=== PATIENT | female | born 1955 | race American Indian/Alaskan Native ===

== ENCOUNTER 2017-01-11 15:10 | Outpatient (CLI) | payer MEDICARE ==
--- NOTE | 2017-01-11 16:06 | Mammography Report ---
BILATERAL DIGITAL SCREENING MAMMOGRAM with CAD : 01/11/17 15:10:00 CLINICAL: Routine screening. COMPARISON:01/09/16 FINDINGS: The breasts are heterogeneously dense, which may obscure small masses.Left central biopsy clip. No mass, architectural distortion or suspicious calcifications. IMPRESSION: No mammographic evidence of malignancy. BI-RADS CATEGORY: 2 -- Benign RECOMMENDATION: Routine mammographic screening in one year. COMMENT: Patient follow-up letters are generated by our [employer] application.
== END 2017-01-11 15:11 | disposition home or self-care (01) ==
LOC: MAMMO 15:10
PROVIDERS: ATTEND Internal Medicine
DX: Z12.31 Encounter for screening mammogram for malignant neoplasm of breast (principal); E11.9 Type 2 diabetes mellitus without complications; E78.00 Pure hypercholesterolemia, unspecified; D64.9 Anemia, unspecified; Z87.891 Personal history of nicotine dependence
CPT/HCPCS: 77067; G0202

== ENCOUNTER 2018-01-22 15:15 | Emergency (ER) | payer MEDICARE ==
[2018-01-22] MEDS ORDERED: ZOFRAN ODT PO ONE (17:29)
[2018-01-22] MEDS ORDERED: NORCO 5/325 PO ONE (17:29)
--- NOTE | 2018-01-22 17:33 | Emergency Department Report ---
ED Abdominal Pain HPI - General Chief Complaint: Abdominal Pain Stated Complaint: LOWER STOMACH PAIN Time Seen by Provider: 01/22/18 17:21 Source: patient Mode of arrival: Ambulatory Limitations: No Limitations - History of Present Illness Initial Comments: Patient is 63 years old female with history of diabetes. Patient presented to the ER complaining of lower abdominal pain for one week. Patient stated that she was constipated for 3 days she called her primary care physician prescribed her Amitza, she stated that she started having diarrhea after that and the pain went away for a while and he came back again. Patient denied any nausea or vomiting patient is eating and drinking in the ER with was no evidence of loss of appetite or vomiting. Patient also denied fever. MD Complaint: abdominal pain -: week(s) Location: suprapubic Radiation: none Migration to: no migration Severity: moderate Severity scale (0 -10): 5 Quality: cramping Associated Symptoms: denies other symptoms - Related Data Home Medications Medication Instructions Recorded Confirmed Last Taken AtorvaSTATin [Lipitor] 10 mg PO QHS 03/09/16 03/09/16 Unknown Fenofibric Acid (Choline) 135 mg PO DAILY 03/09/16 03/09/16 Unknown [Fenofibric Acid] Insulin Glargine [Lantus VIAL] 10 unit SUB-Q QHS 03/09/16 03/09/16 Unknown Losartan [Cozaar] 25 mg PO QDAY 03/09/16 03/09/16 Unknown Quetiapine Fumarate [QUEtiapine 300 mg PO QDAY 03/09/16 03/09/16 Unknown Fumarate] Quetiapine Fumarate [SEROquel XR] 200 mg PO DAILY 03/09/16 03/09/16 Unknown Valacyclovir HCl [Valtrex] 1 tab PO DAILY 03/09/16 03/09/16 Unknown Zolpidem [Ambien] 10 mg PO QHS 03/09/16 03/09/16 Unknown Previous Rx's Medication Instructions Recorded Last Taken Type Docusate Sodium [Colace] 100 mg PO BID PRN #14 capsule 05/27/16 Unknown Rx Magnesium Citrate [Citrate of 296 ml PO ONCE #1 bottle 05/27/16 Unknown Rx Magnesia] Tramadol HCl [traMADol ER 100 MG] 100 mg PO QDAY PRN #10 tab 05/27/16 Unknown Rx Allergies Allergy/AdvReac Type Severity Reaction Status Date / Time No Known Allergies Allergy Verified 01/22/18 15:19 ED Review of Systems ROS: Stated complaint: LOWER STOMACH PAIN Other details as noted in HPI Comment: All other systems reviewed and negative Constitutional: denies: chills, fever Respiratory: denies: cough, orthopnea, shortness of breath, SOB with exertion Cardiovascular: denies: chest pain, palpitations Gastrointestinal: abdominal pain, diarrhea, constipation. denies: nausea, vomiting, hematemesis, melena, hematochezia Genitourinary: denies: urgency, dysuria, frequency, hematuria Neurological: denies: headache, weakness, numbness, paresthesias, confusion ED Past Medical Hx - Past Medical History Hx Congestive Heart Failure: No Hx Diabetes: Yes Hx Deep Vein Thrombosis: Yes (LEFT THIGH) Hx Liver Disease: Yes (Hep C) Hx Arthritis: Yes (BILAT KNEES) Hx Headaches / Migraines: Yes Hx Asthma: No Hx COPD: No Hx HIV: No Additional medical history: Lower extremity DVT, vena cava filter, left subdural hematoma, genital herpes - Surgical History Hx Pacemaker: No Hx Internal Defibrillator: No Additional Surgical History: IVC filter. brain surgery (brain bleed) - March - Social History Smoking Status: Never Smoker Substance Use Type: None - Medications Home Medications: Home Medications Medication Instructions Recorded Confirmed Last Taken Type AtorvaSTATin [Lipitor] 10 mg PO QHS 03/09/16 03/09/16 Unknown History Fenofibric Acid (Choline) 135 mg PO DAILY 03/09/16 03/09/16 Unknown History [Fenofibric Acid] Insulin Glargine [Lantus VIAL] 10 unit SUB-Q QHS 03/09/16 03/09/16 Unknown History Losartan [Cozaar] 25 mg PO QDAY 03/09/16 03/09/16 Unknown History Quetiapine Fumarate [QUEtiapine 300 mg PO QDAY 03/09/16 03/09/16 Unknown History Fumarate] Quetiapine Fumarate [SEROquel XR] 200 mg PO DAILY 03/09/16 03/09/16 Unknown History Valacyclovir HCl [Valtrex] 1 tab PO DAILY 03/09/16 03/09/16 Unknown History Zolpidem [Ambien] 10 mg PO QHS 03/09/16 03/09/16 Unknown History Docusate Sodium [Colace] 100 mg PO BID PRN #14 capsule 05/27/16 Unknown Rx Magnesium Citrate [Citrate of 296 ml PO ONCE #1 bottle 05/27/16 Unknown Rx Magnesia] Tramadol HCl [traMADol ER 100 MG] 100 mg PO QDAY PRN #10 tab 05/27/16 Unknown Rx ED Physical Exam - General Limitations: No Limitations General appearance: alert, in no apparent distress - Head Head exam: Present: atraumatic, normocephalic, normal inspection - Eye Eye exam: Present: normal appearance - ENT ENT exam: Present: normal exam, normal orophraynx, mucous membranes moist - Neck Neck exam: Present: normal inspection, full ROM. Absent: tenderness, meningismus, lymphadenopathy, thyromegaly - Respiratory Respiratory exam: Present: normal lung sounds bilaterally. Absent: respiratory distress, wheezes, rales, rhonchi, stridor, chest wall tenderness, accessory muscle use, decreased breath sounds, prolonged expiratory - Cardiovascular Cardiovascular Exam: Present: regular rate, normal rhythm, normal heart sounds - GI/Abdominal GI/Abdominal exam: Present: soft, normal bowel sounds. Absent: distended, tenderness, guarding, rebound, rigid, organomegaly, mass, bruit, pulsatile mass , hernia - Extremities Exam Extremities exam: Present: normal inspection, full ROM, normal capillary refill - Back Exam Back exam: Present: normal inspection, full ROM. Absent: tenderness, CVA tenderness (R), CVA tenderness (L), muscle spasm, paraspinal tenderness, vertebral tenderness, rash noted - Neurological Exam Neurological exam: Present: alert, oriented X3, CN II-XII intact, normal gait, reflexes normal - Skin Skin exam: Present: warm, intact, normal color ED Course Vital Signs 01/22/18 01/22/18 15:19 18:04 Temperature 98.3 F Pulse Rate 107 H Respiratory 18 20 Rate Blood Pressure 147/73 O2 Sat by Pulse 97 Oximetry ED Medical Decision Making - Lab Data Result diagrams: 01/22/18 18:23 01/22/18 18:23 - Radiology Data Radiology results: report reviewed Abdominal x-ray series, nonobstructive gas pattern. Critical care attestation.: If time is entered above; I have spent that time in minutes in the direct care of this critically ill patient, excluding procedure time. ED Disposition Clinical Impression: Abdominal pain, Constipation Disposition: DC-01 TO HOME OR SELFCARE Is pt being admited?: No Condition: Stable Instructions: Abdominal Pain (ED), High Fiber Diet (ED), Constipation (ED) Referrals: PRIMARY CARE,MD [Primary Care Provider] - 3-5 Days
--- NOTE | 2018-01-22 18:40 | XRay Report ---
FINAL REPORT EXAM: XR ABD SERIES W CXR 1V HISTORY: abdominal pain TECHNIQUE: Single supine view of the abdomen PRIORS: None. FINDINGS: The bowel gas pattern is nonspecific. No free air is identified. Soft tissues have no evidence for mass shadows or calcifications. Inferior vena cava filter is present to the right of the L2-L3. The bony structures are intact. IMPRESSION: Nonspecific, nonobstructive bowel gas pattern with no acute process noted.
[2018-01-22 19:00] LABS: BUN/Creatinine Ratio 17; Blood Urea Nitrogen 15 mg/dL (7-17); Calcium 9.9 mg/dL (8.4-10.2); Hemolysis Index 80
[2018-01-22 19:05] LABS: Hemoglobin 14.9 gm/dl (10.1-14.3); Mean Corpuscular HGB Conc 33 % (30-34); Mean Corpuscular Hemoglobin 33 pg (28-32); Mean Corpuscular Volume 99 fl (79-97); Red Blood Count 4.56 M/mm3 (3.65-5.03); Red Cell Distribution Width 14.9 % (13.2-15.2)
[2018-01-22 19:06] LABS: Platelet Count 228 K/mm3 (140-440)
[2018-01-22 19:23] VITALS: BP 126/86
== END 2018-01-22 19:49 | disposition home or self-care (01) ==
LOC: ED 15:15
DX: K59.00 Constipation, unspecified (principal); E11.9 Type 2 diabetes mellitus without complications; Z86.718 Personal history of other venous thrombosis and embolism; M17.0 Bilateral primary osteoarthritis of knee; G43.909 Migraine, unspecified, not intractable, without status migrainosus
CPT/HCPCS: 36415; 74022; 80048; 85025; Q0162

== ENCOUNTER → 2018-02-15 | Outpatient (CLI) | payer MEDICARE ==
--- NOTE | 2018-02-16 11:47 | Mammography Report ---
BILATERAL DIGITAL SCREENING MAMMOGRAM with CAD: 02/15/18 13:23:00 CLINICAL: Routine screening.Previous left benign biopsy. COMPARISON:01/11/17 FINDINGS: The breasts are heterogeneously dense, which may obscure small masses. A left central biopsy clip and stable calcifications near the clips. No mass, architectural distortion or suspicious calcifications. IMPRESSION: No mammographic evidence of malignancy. BI-RADS CATEGORY: 2 -- Benign RECOMMENDATION: Routine mammographic screening in one year. COMMENT: Patient follow-up letters are generated by our [employer] application.
== END | disposition home or self-care (01) ==
LOC: MAMMO 13:23
PROVIDERS: ATTEND Internal Medicine
DX: Z12.31 Encounter for screening mammogram for malignant neoplasm of breast (principal); E78.5 Hyperlipidemia, unspecified; E11.65 Type 2 diabetes mellitus with hyperglycemia; I82.409 Acute embolism and thrombosis of unspecified deep veins of unspecified lower extremity; M19.90 Unspecified osteoarthritis, unspecified site
CPT/HCPCS: 77067

== ENCOUNTER 2019-02-17 10:36 | Outpatient (CLI) | payer MEDICARE ==
--- NOTE | 2019-02-20 11:28 | Mammography Report ---
BILATERAL DIGITAL SCREENING MAMMOGRAM WITH CAD INDICATION: Routine screening mammography. TECHNIQUE: Digital bilateral 2D mammography was obtained in the craniocaudal and mediolateral obliq ue projections. This examination was interpreted with the benefit of Computer-Aided Detection analysi s. COMPARISON: 02/15/2018 FINDINGS: Breast Density: There are scattered areas of fibroglandular density. No mass, architectural distortion or suspicious calcifications. A left central biopsy clip and stable calcifications near the clip. IMPRESSION:No mammographic evidence of malignancy. BI-RADS Category 2: Benign. No mammographic evidence of malignancy. Recommend routine screening ma mmography in one year. A "normal" or negative report should not discourage follow up or biopsy of a clinically significant f inding. A written summary of these findings will be mailed to the patient. The patient will be entered into a mammography reporting system which will generate a reminder letter for the patient's next appointmen t at the appropriate interval. The [employer] recommends yearly mammograms starting at age 40 and continuing as l pierre as a woman is in good health. Breast MRI is recommended for women with an approximate 20-25% or greater lifetime risk of breast cancer, including women with a strong family history of breast or ova margot cancer or who have been treated for Hodgkin's disease. Signer Name: Jayy Alvarado MD Signed: 02/20/2019 11:24 AM Workstation Name: [id number]
== END 2019-02-17 10:37 | disposition home or self-care (01) ==
LOC: MAMMO 10:36
PROVIDERS: ATTEND Internal Medicine
DX: Z12.31 Encounter for screening mammogram for malignant neoplasm of breast (principal)
CPT/HCPCS: 77067

== ENCOUNTER 2019-05-31 00:57 | Inpatient (IN) | payer MEDICARE ==
[2019-05-31] MEDS ORDERED: SODIUM CHLORIDE 0.9% 1000 ML 1,000 ML IV ONE (01:10)
[2019-05-31] MEDS ORDERED: NALOXONE 2 MG/2 ML 2 MG in SODIUM CHLORIDE 0.9% 500 ML 500 ML IV ONE (01:10)
[2019-05-31] MEDS ORDERED: ONDANSETRON 4 MG/2 ML INJ IV ONE (01:10)
--- NOTE | 2019-05-31 01:18 | Emergency Department Report ---
History of Present Illness - General Chief Complaint: Overdose Stated Complaint: POSS OVERDOSE Time Seen by Provider: 05/31/19 01:09 Source: patient, family, EMS Mode of arrival: Ambulatory Limitations: Altered Mental Status - History of Present Illness Initial Comments: Patient is 64-year-old female with history of hypertension and diabetes. Patient presented to the ER EMS for evaluation of drug overdose. Patient stated that she took 60 tablets of Percocet and she has been drinking alcohol also. Patient given Narcan by EMS and patient started to wake-up. Emergency room patient obtunded but she is answering questions. Oxygen saturation is 96% on 2 L. Patient stated that she is having trouble with her daughter and asked why she decided to took pills. Patient stated that she took the pills at 4 PM approximately 9 hours ago. Complaint: intentional overdose -: This afternoon Intent: suicide attempt Context: Intentional Overdose: relationship problems Associated Symptoms: depression Treatments Prior to Arrival: narcan - Related Data Home Medications Medication Instructions Recorded Confirmed Last Taken ALPRAZolam [Xanax TAB] 0.5 mg PO QDAY PRN 05/31/19 05/31/19 Unknown AtorvaSTATin [Lipitor] 20 mg PO QHS 05/31/19 05/31/19 Unknown Baclofen [Lioresal] 10 mg PO TID 05/31/19 05/31/19 Unknown Butalb/Acetaminophen/Caffeine 50 mg PO DAILY 05/31/19 05/31/19 Unknown [Zlqzry-Qsybdzkb-Kdtx 50-325-40] Divalproex ER [Depakote ER] 500 mg PO QDAY 05/31/19 05/31/19 Unknown Ergocalciferol [Vitamin D2] 1 cap PO QWEEK 05/31/19 05/31/19 Unknown Losartan [Cozaar] 50 mg PO QDAY 05/31/19 05/31/19 Unknown Lubiprostone [Amitiza] 24 mcg PO BID 05/31/19 05/31/19 Unknown Melatonin [Melatonin 5MG TAB] 5 mg PO HS 05/31/19 05/31/19 Unknown Naproxen 500 mg PO BID 05/31/19 05/31/19 Unknown Oxycodone HCl [oxyCODONE] 10 mg PO BID 05/31/19 05/31/19 Unknown Quetiapine Fumarate [SEROquel] 200 mg PO HS 05/31/19 05/31/19 Unknown Valacyclovir HCl [Valtrex] 500 mg PO QDAY 05/31/19 05/31/19 Unknown Zolpidem Tartrate [Edluar SUBL] 10 mg SL QHS PRN 05/31/19 05/31/19 Unknown clonazePAM [Klonopin] 1 mg PO TID PRN 05/31/19 05/31/19 Unknown diazePAM TAB [Valium] 5 mg PO QDAY PRN 05/31/19 05/31/19 Unknown methylPREDNISolone [Medrol 4MG 4 mg PO DAILY 05/31/19 05/31/19 Unknown DOSEPAK (21 tabs)] Allergies Allergy/AdvReac Type Severity Reaction Status Date / Time No Known Allergies Allergy Verified 01/22/18 15:19 ED Review of Systems ROS: Stated complaint: POSS OVERDOSE Other details as noted in HPI Comment: All other systems reviewed and negative Constitutional: denies: chills, fever Respiratory: denies: cough, shortness of breath, SOB with exertion Gastrointestinal: denies: abdominal pain, nausea Genitourinary: denies: urgency Musculoskeletal: denies: back pain Neurological: denies: headache, weakness ED Past Medical Hx - Past Medical History Hx Congestive Heart Failure: No Hx Diabetes: Yes Hx Deep Vein Thrombosis: Yes (LEFT THIGH) Hx Liver Disease: Yes (Hep C) Hx Arthritis: Yes (BILAT KNEES) Hx Headaches / Migraines: Yes Hx Asthma: No Hx COPD: No Hx HIV: No Additional medical history: Lower extremity DVT, vena cava filter, left subdural hematoma, genital herpes - Surgical History Hx Pacemaker: No Hx Internal Defibrillator: No Additional Surgical History: IVC filter. brain surgery (brain bleed) - March - Social History Smoking Status: Never Smoker Substance Use Type: Alcohol - Medications Home Medications: Home Medications Medication Instructions Recorded Confirmed Last Taken Type ALPRAZolam [Xanax TAB] 0.5 mg PO QDAY PRN 05/31/19 05/31/19 Unknown History AtorvaSTATin [Lipitor] 20 mg PO QHS 05/31/19 05/31/19 Unknown History Baclofen [Lioresal] 10 mg PO TID 05/31/19 05/31/19 Unknown History Butalb/Acetaminophen/Caffeine 50 mg PO DAILY 05/31/19 05/31/19 Unknown History [Kbwapa-Jahrecct-Aweu 50-325-40] Divalproex ER [Depakote ER] 500 mg PO QDAY 05/31/19 05/31/19 Unknown History Ergocalciferol [Vitamin D2] 1 cap PO QWEEK 05/31/19 05/31/19 Unknown History Losartan [Cozaar] 50 mg PO QDAY 05/31/19 05/31/19 Unknown History Lubiprostone [Amitiza] 24 mcg PO BID 05/31/19 05/31/19 Unknown History Melatonin [Melatonin 5MG TAB] 5 mg PO HS 05/31/19 05/31/19 Unknown History Naproxen 500 mg PO BID 05/31/19 05/31/19 Unknown History Oxycodone HCl [oxyCODONE] 10 mg PO BID 05/31/19 05/31/19 Unknown History Quetiapine Fumarate [SEROquel] 200 mg PO HS 05/31/19 05/31/19 Unknown History Valacyclovir HCl [Valtrex] 500 mg PO QDAY 05/31/19 05/31/19 Unknown History Zolpidem Tartrate [Edluar SUBL] 10 mg SL QHS PRN 05/31/19 05/31/19 Unknown History clonazePAM [Klonopin] 1 mg PO TID PRN 05/31/19 05/31/19 Unknown History diazePAM TAB [Valium] 5 mg PO QDAY PRN 05/31/19 05/31/19 Unknown History methylPREDNISolone [Medrol 4MG 4 mg PO DAILY 05/31/19 05/31/19 Unknown History DOSEPAK (21 tabs)] ED Physical Exam - General Limitations: Altered Mental Status General appearance: in no apparent distress, appears intoxicated, obtunded - Head Head exam: Present: atraumatic, normocephalic, normal inspection - Eye Eye exam: Present: normal appearance - ENT ENT exam: Present: normal exam, normal orophraynx, mucous membranes moist - Neck Neck exam: Present: normal inspection, full ROM. Absent: tenderness, meningismus, lymphadenopathy, thyromegaly - Respiratory Respiratory exam: Present: normal lung sounds bilaterally - Cardiovascular Cardiovascular Exam: Present: regular rate, normal rhythm, normal heart sounds - GI/Abdominal GI/Abdominal exam: Present: soft, normal bowel sounds. Absent: distended, tenderness, guarding, rebound, rigid, organomegaly, mass, bruit, pulsatile mass, hernia - Extremities Exam Extremities exam: Present: normal inspection, full ROM, normal capillary refill. Absent: tenderness, pedal edema, joint swelling, calf tenderness - Back Exam Back exam: Present: normal inspection, full ROM. Absent: CVA tenderness (R), CVA tenderness (L) - Neurological Exam Neurological exam: Present: alert, oriented X3, CN II-XII intact - Psychiatric Psychiatric exam: Present: depressed, suicidal ideation - Skin Skin exam: Present: warm, intact, normal color ED Course Vital Signs 05/31/19 05/31/19 05/31/19 01:10 01:12 01:42 Temperature 98.0 F Pulse Rate 102 H 84 Respiratory 12 12 11 L Rate Blood Pressure 147/78 Blood Pressure [Right] O2 Sat by Pulse 99 95 Oximetry 05/31/19 05/31/19 05/31/19 01:46 02:00 02:16 Temperature Pulse Rate 82 86 88 Respiratory 12 13 12 Rate Blood Pressure 145/69 154/72 159/76 Blood Pressure [Right] O2 Sat by Pulse 98 100 99 Oximetry 05/31/19 05/31/19 05/31/19 02:30 02:46 03:00 Temperature Pulse Rate 94 H 86 108 H Respiratory 14 12 18 Rate Blood Pressure 154/74 144/69 133/57 Blood Pressure [Right] O2 Sat by Pulse 99 100 99 Oximetry 05/31/19 05/31/19 05/31/19 03:15 03:30 03:45 Temperature Pulse Rate 114 H 100 H 94 H Respiratory 12 10 L 10 L Rate Blood Pressure 149/66 149/66 157/66 Blood Pressure [Right] O2 Sat by Pulse 98 97 98 Oximetry 05/31/19 05/31/19 05/31/19 04:47 05:00 05:30 Temperature Pulse Rate 82 79 Respiratory 8 L 8 L Rate Blood Pressure 108/53 103/55 107/55 Blood Pressure [Right] O2 Sat by Pulse 99 100 98 Oximetry 05/31/19 05/31/19 05/31/19 06:01 06:31 07:15 Temperature 97.6 F Pulse Rate 89 83 80 Respiratory 10 L 10 L 16 Rate Blood Pressure 107/55 119/81 Blood Pressure 147/73 [Right] O2 Sat by Pulse 100 100 100 Oximetry - Reevaluation(s) Reevaluation #1: 11/27/19 01:35 Poison control contacted and advised to monitor for 6 hours and continue the Narcan drip. ED Medical Decision Making - Lab Data Result diagrams: 06/01/19 06:41 06/01/19 06:41 - EKG Data -: EKG Interpreted by Me EKG shows normal: sinus rhythm Rate: normal - EKG Data Interpretation: no acute changes - Radiology Data Radiology results: report reviewed - Medical Decision Making Patient is 64-year-old female with history of hypertension and diabetes. Patient presented to the ER EMS for evaluation of drug overdose. Patient stated that she took 60 tablets of Percocet and she has been drinking alcohol also. Patient given Narcan by EMS and patient started to wake-up. Emergency room patient obtunded but she is answering questions. Oxygen saturation is 96% on 2 L. Patient stated that she is having trouble with her daughter and asked why she decided to took pills. Patient stated that she took the pills at 4 PM approximately 9 hours ago. Patient remained obtunded but also question and she responded well to our daught er. Oxygen saturation is 100% on 2 L of oxygen. Labs reviewed and is unremarkable except for positive UDS for barbiturate and benzodiazepine. I discussed the patient with , agreed to admit the patient to medical service for further management. Critical Care Time: Yes Critical care time in (mins) excluding proc time.: 30 Critical care attestation.: If time is entered above; I have spent that time in minutes in the direct care of this critically ill patient, excluding procedure time. ED Disposition Clinical Impression: Intentional overdose of drug in tablet form, Suicide attempt Disposition: 09 OP ADMIT IP TO THIS HOSP Is pt being admited?: Yes Condition: Stable
[2019-05-31 01:55] LABS: Basophils % (Auto) 0.5 % (0.0-1.8); Eosinophils # (Auto) 0.1 K/mm3 (0.0-0.4); Eosinophils % (Auto) 1.9 % (0.0-4.3); Hemoglobin 11.8 gm/dl (10.1-14.3); Lymphocytes # (Auto) 1.8 K/mm3 (1.2-5.4); Lymphocytes % (Auto) 30.3 % (13.4-35.0); Mean Corpuscular HGB Conc 34 % (30-34); Mean Corpuscular Volume 96 fl (79-97); Monocytes # (Auto) 0.5 K/mm3 (0.0-0.8); Monocytes % (Auto) 8.2 % (0.0-7.3); Platelet Count 363 K/mm3 (140-440); Red Blood Count 3.65 M/mm3 (3.65-5.03); Red Cell Distribution Width 15.6 % (13.2-15.2)
[2019-05-31 02:18] LABS: Alanine Aminotransferase 23 units/L (7-56); Albumin 3.9 g/dL (3.9-5); BUN/Creatinine Ratio 28; Blood Urea Nitrogen 25 mg/dL (7-17); Hemolysis Index 7
[2019-05-31 03:03] LABS: Bilirubin,Urine NEG (Negative); Blood,Urine SM (Negative); Color,Urine Yellow (Yellow); Mucus,Urine FEW /HPF; Protein,Urine <15 mg/dL mg/dL (Negative); Urobilinogen,Urine < 2.0 mg/dL (<2.0)
[2019-05-31 03:06] LABS: Amphetamine Screen,Urine PRESUMPTIVE NEGATIVE; Cannabinoid Screen,Urine PRESUMPTIVE NEGATIVE; Cocaine Screen,Urine PRESUMPTIVE NEGATIVE; Methadone Screen,Urine PRESUMPTIVE NEGATIVE; Opiate Screen,Urine PRESUMPTIVE NEGATIVE
[2019-05-31 03:26] LABS: Benzodiazepines Screen,Urine PRESUMPTIVE POSITIVE
--- NOTE | 2019-05-31 04:36 | History and Physical Report ---
History of Present Illness Date of examination: 05/31/19 Date of admission: 05/31/19 Chief complaint: overdose History of present illness: Patient is 64-year-old female with history of hypertension and diabetes apparently mental or behavioral medical conditions for which she appears to be on multiple psychiatric medications. Presents to the ED via EMS after the marine ghter found her confused and altered. Patient currently remains somnolent although saturating 96% on 2 L nasal cannula and in no evidence of acute respiratory distress. Information is obtained from the ED documentation and discussion with the daughter. Per the ED nurse and physician the patient was more awake when she presented. " Patient stated that she is having trouble with her daughter and asked why she decided to took pills. Patient stated that she took the pills at 4 PM approximately 9 hours ago." MD Complaint: intentional overdose -: This afternoon Intent: suicide attempt Context: Intentional Overdose: relationship problems Associated Symptoms: depression Treatments Prior to Arrival: narcan - Past Medical History Hx Congestive Heart Failure: No Hx Diabetes: Yes Hx Deep Vein Thrombosis: Yes (LEFT THIGH) Hx Liver Disease: Yes (Hep C) Hx Arthritis: Yes (BILAT KNEES) Hx Headaches / Migraines: Yes Hx Asthma: No Hx COPD: No Hx HIV: No Additional medical history: Lower extremity DVT, vena cava filter, left subdural hematoma, genital herpes - Surgical History Hx Pacemaker: No Hx Internal Defibrillator: No Additional Surgical History: IVC filter. brain surgery (brain bleed) - March - Social History Smoking Status: Never Smoker Substance Use Type: Alcohol Medications and Allergies Allergies Allergy/AdvReac Type Severity Reaction Status Date / Time No Known Allergies Allergy Verified 01/22/18 15:19 Home Medications Medication Instructions Recorded Confirmed Last Taken Type ALPRAZolam [Xanax TAB] 0.5 mg PO QDAY PRN 05/31/19 05/31/19 Unknown History AtorvaSTATin [Lipitor] 20 mg PO QHS 05/31/19 05/31/19 Unknown History Baclofen [Lioresal] 10 mg PO TID 05/31/19 05/31/19 Unknown History Butalb/Acetaminophen/Caffeine 50 mg PO DAILY 05/31/19 05/31/19 Unknown History [Lkbzpl-Yshajhjq-Qvmn 50-325-40] Divalproex ER [Depakote ER] 500 mg PO QDAY 05/31/19 05/31/19 Unknown History Ergocalciferol [Vitamin D2] 1 cap PO QWEEK 05/31/19 05/31/19 Unknown History Losartan [Cozaar] 50 mg PO QDAY 05/31/19 05/31/19 Unknown History Lubiprostone [Amitiza] 24 mcg PO BID 05/31/19 05/31/19 Unknown History Melatonin [Melatonin 5MG TAB] 5 mg PO HS 05/31/19 05/31/19 Unknown History Naproxen 500 mg PO BID 05/31/19 05/31/19 Unknown History Oxycodone HCl [oxyCODONE] 10 mg PO BID 05/31/19 05/31/19 Unknown History Quetiapine Fumarate [SEROquel] 200 mg PO HS 05/31/19 05/31/19 Unknown History Valacyclovir HCl [Valtrex] 500 mg PO QDAY 05/31/19 05/31/19 Unknown History Zolpidem Tartrate [Edluar SUBL] 10 mg SL QHS PRN 05/31/19 05/31/19 Unknown History clonazePAM [Klonopin] 1 mg PO TID PRN 05/31/19 05/31/19 Unknown History diazePAM TAB [Valium] 5 mg PO QDAY PRN 05/31/19 05/31/19 Unknown History methylPREDNISolone [Medrol 4MG 4 mg PO DAILY 05/31/19 05/31/19 Unknown History DOSEPAK (21 tabs)] Active Meds: Active Medications Naloxone HCl 2 mg/ Sodium (Chloride) 502 mls @ 100.4 mls/hr IV DIRECT ONE Stop: 05/31/19 06:09 Last Admin: 05/31/19 02:01 Dose: 0.4 mg/hr, 100.4 mls/hr Documented by: Review of Systems ROS unobtainable: due to mental status (Not answering any questions at this time she is arousable but falls right back asleep) Exam - Physical Exam Narrative exam: VITAL SIGNS: Reviewed. GENERAL: The patient appears normally developed, somnolent Vital signs as documented. HEAD: No signs of head trauma. EYES: Pupils are equal. Extraocular motions intact. EARS: Hearing grossly intact. MOUTH: Oropharynx is normal. NECK: No adenopathy, no JVD. CHEST: Chest with clear breath sounds bilaterally. No wheezes, rales, or rhonchi. CARDIAC: Regular rate and rhythm. S1 and S2, without murmurs, gallops, or rubs. VASCULAR: No Edema. Peripheral pulses normal and equal in all extremities. ABDOMEN: Soft, non tender and non distended. No rebound or guarding, and no masses palpated. Bowel Sounds normal. MUSCULOSKELETAL: Good range of motion of all major joints. Extremities without clubbing, cyanosis or edema. NEUROLOGIC EXAM: Somnolent but arousable. No focal sensory or strength deficits. Speech normal. Follows commands. PSYCHIATRIC: Mood normal. SKIN: tattoe, There is a right IJ line, and one on the left submammary gland area. Detail exam as documented in skin assessment - Constitutional Vitals: Temp Pulse Resp BP Pulse Ox 98.0 F 102 H 12 147/78 99 05/31/19 01:10 05/31/19 01:10 05/31/19 01:12 05/31/19 01:10 05/31/19 01:10 Results - Labs CBC & Chem 7: 05/31/19 01:36 05/31/19 01:36 Labs: Laboratory Last Values WBC 5.9 K/mm3 (4.5-11.0) 05/31/19 01:36 RBC 3.65 M/mm3 (3.65-5.03) 05/31/19 01:36 Hgb 11.8 gm/dl (10.1-14.3) 05/31/19 01:36 Hct 35.0 % (30.3-42.9) 05/31/19 01:36 MCV 96 fl (79-97) 05/31/19 01:36 MCH 32 pg (28-32) 05/31/19 01:36 MCHC 34 % (30-34) 05/31/19 01:36 RDW 15.6 % (13.2-15.2) H 05/31/19 01:36 Plt Count 363 K/mm3 (140-440) 05/31/19 01:36 Lymph % (Auto) 30.3 % (13.4-35.0) 05/31/19 01:36 [place] % (Auto) 8.2 % (0.0-7.3) H 05/31/19 01:36 Eos % (Auto) 1.9 % (0.0-4.3) 05/31/19 01:36 Baso % (Auto) 0.5 % (0.0-1.8) 05/31/19 01:36 Lymph # 1.8 K/mm3 (1.2-5.4) 05/31/19 01:36 [place] # 0.5 K/mm3 (0.0-0.8) 05/31/19 01:36 Eos # 0.1 K/mm3 (0.0-0.4) 05/31/19 01:36 Baso # 0.0 K/mm3 (0.0-0.1) 05/31/19 01:36 Seg Neutrophils % 59.1 % (40.0-70.0) 05/31/19 01:36 Seg Neutrophils # 3.5 K/mm3 (1.8-7.7) 05/31/19 01:36 Sodium 142 mmol/L (137-145) 05/31/19 01:36 Potassium 4.2 mmol/L (3.6-5.0) 05/31/19 01:36 Chloride 106.1 mmol/L (98-107) 05/31/19 01:36 Carbon Dioxide 21 mmol/L (22-30) L 05/31/19 01:36 Anion Gap 19 mmol/L 05/31/19 01:36 BUN 25 mg/dL (7-17) H 05/31/19 01:36 Creatinine 0.9 mg/dL (0.7-1.2) 05/31/19 01:36 Estimated GFR > 60 ml/min 05/31/19 01:36 BUN/Creatinine Ratio 28 % 05/31/19 01:36 Glucose 123 mg/dL (65-100) H 05/31/19 01:36 Calcium 9.0 mg/dL (8.4-10.2) 05/31/19 01:36 Magnesium 1.80 mg/dL (1.7-2.3) 05/31/19 01:40 Total Bilirubin 0.30 mg/dL (0.1-1.2) 05/31/19 01:36 AST 24 units/L (5-40) 05/31/19 01:36 ALT 23 units/L (7-56) 05/31/19 01:36 Alkaline Phosphatase 54 units/L (35-129) 05/31/19 01:36 Total Creatine Kinase 359 units/L (30-135) H 05/31/19 01:40 Total Protein 7.2 g/dL (6.3-8.2) 05/31/19 01:36 Albumin 3.9 g/dL (3.9-5) 05/31/19 01:36 Albumin/Globulin Ratio 1.2 % 05/31/19 01:36 Urine Color Yellow (Yellow) 05/31/19 02:35 Urine Turbidity Slightly-cloudy (Clear) 05/31/19 02:35 Urine pH 5.0 (5.0-7.0) 05/31/19 02:35 Ur Specific [place] 1.012 (1.003-1.030) 05/31/19 02:35 Urine Protein <15 mg/dl mg/dL (Negative) 05/31/19 02:35 Urine Glucose (UA) Neg mg/dL (Negative) 05/31/19 02:35 Urine Ketones Neg mg/dL (Negative) 05/31/19 02:35 Urine Blood Sm (Negative) 05/31/19 02:35 Urine Nitrite Neg (Negative) 05/31/19 02:35 Urine Bilirubin Neg (Negative) 05/31/19 02:35 Urine Urobilinogen < 2.0 mg/dL (<2.0) 05/31/19 02:35 Ur Leukocyte Esterase Neg (Negative) 05/31/19 02:35 Urine WBC (Auto) 2.0 /HPF (0.0-6.0) 05/31/19 02:35 Urine RBC (Auto) 9.0 /HPF (0.0-6.0) 05/31/19 02:35 U Epithel Cells (Auto) 1.0 /HPF (0-13.0) 05/31/19 02:35 Urine Mucus Few /HPF 05/31/19 02:35 Salicylates < 0.3 mg/dL (2.8-20.0) L 05/31/19 01:36 Urine Opiates Screen Presumptive negative 05/31/19 02:35 Urine Methadone Screen Presumptive negative 05/31/19 02:35 Acetaminophen < 5.0 ug/mL (10.0-30.0) L 05/31/19 01:36 Ur Barbiturates Screen Presumptive positive 05/31/19 02:35 Ur Phencyclidine Scrn Presumptive negative 05/31/19 02:35 Ur Amphetamines Screen Presumptive negative 05/31/19 02:35 U Benzodiazepines Scrn Presumptive positive 05/31/19 02:35 Urine Cocaine Screen Presumptive negative 05/31/19 02:35 U Marijuana (THC) Screen Presumptive negative 05/31/19 02:35 Drugs of Abuse Note Disclamer 05/31/19 02:35 Plasma/Serum Alcohol < 0.01 % (0-0.07) 05/31/19 01:36 Assessment and Plan Assessment and plan: Patient is 64-year-old female with history of hypertension and diabetes apparently mental or behavioral medical conditions for which she appears to be on multiple psychiatric medications. Presents to the ED via EMS after the daughter found her confused and altered. Patient currently remains somnolent although saturating 96% on 2 L nasal cannula and in no evidence of acute respiratory distress. Information is obtained from the ED documentation and discussion with the daughter. Per the ED nurse and physician the patient was more awake when she presented. " Patient stated that she is having trouble with her daughter and asked why she decided to took pills. Patient stated that she took the pills at 4 PM approximately 9 hours ago." * In the ED the patient was noted to patient the obtunded but also question and she responded well to our daughter. Oxygen saturation is 100% on 2 L of o xygen. Labs reviewed and is unremarkable except for positive UDS for barbiturate and benzodiazepine. * She was started on Narcan drip by EMS and continued at this time. Initial acetaminophen level is negative. The ED physician spoke with poison control recommended admission to monitor. * Home medications reviewed EMS also reported that they could not find any empty bottles Percocet database included in the multiple medication the patient has has a Percocet with medications still and it does not appear that multiple meds of 60 tabs was taken out. Acute metabolic encephalopathy likely secondary to combination of alcohol and opioid in addition to barbiturates Suicidal attempt Presumed underlying behavioral health disorder Positive UDS for opioid and barbiturates Morbid obesity plan We will admit the patient to IMCU at this point We will continue Narcan drip We will continue to monitor acetaminophen level Patient remains at 1013 and will obtain psych consultation for suicidal ideation CT of the head evaluated no acute pathology noted on my gross reading will await full report I have advised the Nursing staff and discussed with the ED doctor about melita condeing the line placed in the breast tissue, for infection prevention purposes. Monitor oxygenation status Monitor creatinine kinase also No family present at this time DVT and GI prophylaxis Advance Directives: Yes Plan of care discussed with patient/family: Yes
[2019-05-31] MEDS ORDERED: NON-FORMULARY EACH (Clonazepam [Klonopin] 1 MG) PO PRN (04:38)
[2019-05-31] MEDS ORDERED: diazePAM 5 MG TAB PO PRN (04:38)
[2019-05-31] MEDS ORDERED: ZOLPIDEM TARTRATE 10 MG SL PRN (04:38)
[2019-05-31] MEDS ORDERED: clonazePAM 0.5 MG TAB PO PRN (04:52)
--- NOTE | 2019-05-31 04:57 | Cat Scan Report ---
Examination: CT of the head without contrast Clinical information: Altered mental status Comparison: CT of the head, 04/13/2015 Technical: Multiple axial CT images of the head were obtained without intravenous contrast. Sagittal and coronal reformats were obtained. All CTs at this facility utilize dose reduction techniques inc luding automated exposure control, iterative reconstruction and weight based dosing when appropriate to reduce patient radiation dose to as low as reasonable achievable. Findings: There is no CT evidence of acute intracranial hemorrhage or large territorial infarct. The ventricular system remains normal in size. There are no extra-axial fluid collections. Evaluation of the calvarium demonstrates no evidence of acute bony abnormality. The visualized parana caryn sinuses and mastoid air cells are clear. Impression: 1. No CT evidence of acute intracranial process. Signer Name: Alyssa Pratt MD Signed: 05/31/2019 4:52 AM Workstation Name: [id number]
[2019-05-31] MEDS ORDERED: THIAMINE 100 MG, FOLIC ACID 1 MG, MULTIPLE VITAMIN INJ, ADULT 10 ML in SODIUM CHLORIDE ... IV ONE (05:06)
[2019-05-31] MEDS ORDERED: ZOLPIDEM 5 MG TAB PO PRN (05:50)
[2019-05-31] MEDS ORDERED: VALACYCLOVIR HCL 500 MG PO SCH (10:00)
[2019-05-31] MEDS ORDERED: METHYLPREDNISOLONE 4 MG PO SCH (10:00)
[2019-05-31] MEDS ORDERED: NON-FORMULARY EACH (Lubiprostone [Amitiza] 24 MCG) PO SCH (10:00)
[2019-05-31] MEDS ORDERED: CAFFEINE PO SCH (10:00)
[2019-05-31] MEDS ORDERED: [UNRECOGNIZED DRUG - OTHER] PO SCH (10:00)
[2019-05-31] MEDS ORDERED: BUTALBITAL PO SCH (10:00)
[2019-05-31] MEDS ORDERED: ACETAMINOPHEN PO SCH (10:00)
[2019-05-31] MEDS: LUBIPROSTONE 24 MCG PO SCH ×2 (13:41→22:55)
[2019-05-31] MEDS: methylPREDNISolone 4 MG TAB PO SCH (13:42)
[2019-05-31] MEDS: valACYclovir 500 MG TAB PO SCH (13:43)
[2019-05-31] MEDS: DIVALPROEX ER 500 MG TAB PO SCH (13:44)
[2019-05-31] MEDS: LOSARTAN 50 MG TAB PO SCH (13:45)
[2019-05-31] MEDS: BUTALB/ACETAMINOPHEN/CAFFEINE TAB PO SCH ×2 (13:58→16:18)
[2019-05-31] MEDS: QUEtiapine 200 MG TAB PO SCH (20:45)
[2019-05-31] MEDS: MELATONIN 5 MG TAB PO SCH (20:45)
[2019-05-31] MEDS ORDERED: QUETIAPINE FUMARATE 200 MG PO SCH (22:00)
[2019-06-01] MEDS: QUEtiapine 200 MG TAB PO SCH ×2 (01:05→21:50)
[2019-06-01] MEDS: MELATONIN 5 MG TAB PO SCH ×2 (01:05→21:50)
[2019-06-01 07:54] LABS: Hematocrit 33.3 % (30.3-42.9); Mean Corpuscular HGB Conc 33 % (30-34); Mean Corpuscular Volume 96 fl (79-97); Platelet Count 358 K/mm3 (140-440); Red Blood Count 3.45 M/mm3 (3.65-5.03); Red Cell Distribution Width 15.8 % (13.2-15.2)
[2019-06-01 08:16] LABS: Alanine Aminotransferase 23 units/L (7-56); Albumin 3.8 g/dL (3.9-5); BUN/Creatinine Ratio 16; Blood Urea Nitrogen 11 mg/dL (7-17); Hemolysis Index 6
[2019-06-01] MEDS: BUTALB/ACETAMINOPHEN/CAFFEINE TAB PO SCH (09:49)
[2019-06-01] MEDS: LOSARTAN 50 MG TAB PO SCH (09:50)
[2019-06-01] MEDS: LUBIPROSTONE 24 MCG PO SCH ×2 (09:50→21:51)
[2019-06-01] MEDS: DIVALPROEX ER 500 MG TAB PO SCH (09:51)
[2019-06-01] MEDS: methylPREDNISolone 4 MG TAB PO SCH (09:51)
[2019-06-01] MEDS: valACYclovir 500 MG TAB PO SCH (09:52)
--- NOTE | 2019-06-01 12:50 | Progress Note ---
Assessment and Plan Assessment and plan: Patient is 64-year-old female with history of hypertension and diabetes apparently mental or behavioral medical conditions for which she appears to be on multiple psychiatric medications. Presents to the ED via EMS after the daughter found her confused and altered. Patient currently remains somnolent a lthough saturating 96% on 2 L nasal cannula and in no evidence of acute respiratory distress. Information is obtained from the ED documentation and discussion with the daughter. Per the ED nurse and physician the patient was more awake when she presented. " Patient stated that she is having trouble with her daughter and asked why she decided to took pills. Patient stated that she took the pills at 4 PM approximately 9 hours ago." * In the ED the patient was noted to patient the obtunded but also question and she responded well to our daughter. Oxygen saturation is 100% on 2 L of oxygen. Labs reviewed and is unremarkable except for positive UDS for barbiturate and benzodiazepine. * She was started on Narcan drip by EMS and continued at this time. Initial acetaminophen level is negative. The ED physician spoke with poison control recommended admission to monitor. * Home medications reviewed EMS also reported that they could not find any empty bottles Percocet database included in the multiple medication the patient has has a Percocet with medications still and it does not appear that multiple meds of 60 tabs was taken out. Acute metabolic encephalopathy likely secondary to combination of alcohol and opioid in addition to barbiturates Suicidal attempt Presumed underlying behavioral health disorder Positive UDS for opioid and barbiturates Morbid obesity plan We will admit the patient to IMCU at this point Medically stable for discharged, IF CLEARED BY PSYCH Discontinue Narcan Drip acetaminophine levels are normal Patient remains at 1013 and will obtain psych consultation for suicidal ideation CT of the head Negative Discussed with daughter extensively, She says her Mother loves life. No family present at this time DVT and GI prophylaxis History Interval history: Patient seen and examined, resting comfortable. No new distress Hospitalist Physical - Physical exam Narrative exam: VITAL SIGNS: Reviewed. GENERAL: The patient appears normally developed, Vital signs as documented. HEAD: No signs of head trauma. EYES: Pupils are equal. Extraocular motions intact. EARS: Hearing grossly intact. MOUTH: Oropharynx is normal. NECK: No adenopathy, no JVD. CHEST: Chest with clear breath sounds bilaterally. No wheezes, rales, or rhonchi. CARDIAC: Regular rate and rhythm. S1 and S2, without murmurs, gallops, or rubs. VASCULAR: No Edema. Peripheral pulses normal and equal in all extremities. ABDOMEN: Soft, non tender and non distended. No rebound or guarding, and no masses palpated. Bowel Sounds normal. MUSCULOSKELETAL: Good range of motion of all major joints. Extremities without clubbing, cyanosis or edema. NEUROLOGIC EXAM: awake and oriented x3. No focal sensory or strength deficits. Speech normal. Follows commands. PSYCHIATRIC: Mood normal. SKIN: tattoo Detail exam as documented in skin assessment - Constitutional Vitals: Temp Pulse Resp BP Pulse Ox 97.6 F 100 H 12 121/64 100 06/01/19 04:15 06/01/19 11:00 06/01/19 11:00 06/01/19 11:39 06/01/19 11:00 Results - Labs CBC & Chem 7: 06/01/19 06:41 06/01/19 06:41 Labs: Laboratory Last Values WBC 6.6 K/mm3 (4.5-11.0) 06/01/19 06:41 RBC 3.45 M/mm3 (3.65-5.03) L 06/01/19 06:41 Hgb 11.0 gm/dl (10.1-14.3) 06/01/19 06:41 Hct 33.3 % (30.3-42.9) 06/01/19 06:41 MCV 96 fl (79-97) 06/01/19 06:41 MCH 32 pg (28-32) 06/01/19 06:41 MCHC 33 % (30-34) 06/01/19 06:41 RDW 15.8 % (13.2-15.2) H 06/01/19 06:41 Plt Count 358 K/mm3 (140-440) 06/01/19 06:41 Lymph % (Auto) 30.3 % (13.4-35.0) 05/31/19 01:36 [place] % (Auto) 8.2 % (0.0-7.3) H 05/31/19 01:36 Eos % (Auto) 1.9 % (0.0-4.3) 05/31/19 01:36 Baso % (Auto) 0.5 % (0.0-1.8) 05/31/19 01:36 Lymph # 1.8 K/mm3 (1.2-5.4) 05/31/19 01:36 [place] # 0.5 K/mm3 (0.0-0.8) 05/31/19 01:36 Eos # 0.1 K/mm3 (0.0-0.4) 05/31/19 01:36 Baso # 0.0 K/mm3 (0.0-0.1) 05/31/19 01:36 Seg Neutrophils % 59.1 % (40.0-70.0) 05/31/19 01:36 Seg Neutrophils # 3.5 K/mm3 (1.8-7.7) 05/31/19 01:36 Sodium 141 mmol/L (137-145) 06/01/19 06:41 Potassium 4.5 mmol/L (3.6-5.0) 06/01/19 06:41 Chloride 104.4 mmol/L (98-107) 06/01/19 06:41 Carbon Dioxide 21 mmol/L (22-30) L 06/01/19 06:41 Anion Gap 20 mmol/L 06/01/19 06:41 BUN 11 mg/dL (7-17) 06/01/19 06:41 Creatinine 0.7 mg/dL (0.7-1.2) 06/01/19 06:41 Estimated GFR > 60 ml/min 06/01/19 06:41 BUN/Creatinine Ratio 16 % 06/01/19 06:41 Glucose 137 mg/dL (65-100) H 06/01/19 06:41 Calcium 9.0 mg/dL (8.4-10.2) 06/01/19 06:41 Magnesium 1.80 mg/dL (1.7-2.3) 05/31/19 01:40 Total Bilirubin 0.30 mg/dL (0.1-1.2) 06/01/19 06:41 AST 27 units/L (5-40) 06/01/19 06:41 ALT 23 units/L (7-56) 06/01/19 06:41 Alkaline Phosphatase 52 units/L (35-129) 06/01/19 06:41 Total Creatine Kinase 316 units/L (30-135) H 05/31/19 06:28 Total Protein 6.9 g/dL (6.3-8.2) 06/01/19 06:41 Albumin 3.8 g/dL (3.9-5) L 06/01/19 06:41 Albumin/Globulin Ratio 1.2 % 06/01/19 06:41 Urine Color Yellow (Yellow) 05/31/19 02:35 Urine Turbidity Slightly-cloudy (Clear) 05/31/19 02:35 Urine pH 5.0 (5.0-7.0) 05/31/19 02:35 Ur Specific [place] 1.012 (1.003-1.030) 05/31/19 02:35 Urine Protein <15 mg/dl mg/dL (Negative) 05/31/19 02:35 Urine Glucose (UA) Neg mg/dL (Negative) 05/31/19 02:35 Urine Ketones Neg mg/dL (Negative) 05/31/19 02:35 Urine Blood Sm (Negative) 05/31/19 02:35 Urine Nitrite Neg (Negative) 05/31/19 02:35 Urine Bilirubin Neg (Negative) 05/31/19 02:35 Urine Urobilinogen < 2.0 mg/dL (<2.0) 05/31/19 02:35 Ur Leukocyte Esterase Neg (Negative) 05/31/19 02:35 Urine WBC (Auto) 2.0 /HPF (0.0-6.0) 05/31/19 02:35 Urine RBC (Auto) 9.0 /HPF (0.0-6.0) 05/31/19 02:35 U Epithel Cells (Auto) 1.0 /HPF (0-13.0) 05/31/19 02:35 Urine Mucus Few /HPF 05/31/19 02:35 Salicylates < 0.3 mg/dL (2.8-20.0) L 05/31/19 01:36 Urine Opiates Screen Presumptive negative 05/31/19 02:35 Urine Methadone Screen Presumptive negative 05/31/19 02:35 Acetaminophen < 5.0 ug/mL (10.0-30.0) L 05/31/19 16:26 Ur Barbiturates Screen Presumptive positive 05/31/19 02:35 Ur Phencyclidine Scrn Presumptive negative 05/31/19 02:35 Ur Amphetamines Screen Presumptive negative 05/31/19 02:35 U Benzodiazepines Scrn Presumptive positive 05/31/19 02:35 Urine Cocaine Screen Presumptive negative 05/31/19 02:35 U Marijuana (THC) Screen Presumptive negative 05/31/19 02:35 Drugs of Abuse Note Disclamer 05/31/19 02:35 Plasma/Serum Alcohol < 0.01 % (0-0.07) 05/31/19 01:36 Active Medications - Current Medications Current Medications: Generic Name Dose Route Start Last Admin Trade Name Robert PRN Reason Stop Dose Admin Acetaminophen/Butalbital/Caffeine 1 tab 05/31/19 10:00 06/01/19 09:49 Fioricet PO 1 tab DAILY LEXIE Administration Atorvastatin Calcium 20 mg 05/31/19 22:00 06/01/19 00:56 Lipitor PO Not Given QHS LEXIE Clonazepam 0.5 mg 06/01/19 13:00 Klonopin PO BID LEXIE Divalproex Sodium 500 mg 05/31/19 10:00 06/01/19 09:51 Depakote Er PO 500 mg QDAY LEXIE Administration Ergocalciferol 50,000 unit 06/06/19 10:00 Vitamin D2 PO Tu LEXIE Losartan Potassium 50 mg 05/31/19 10:00 06/01/19 09:50 Cozaar PO 50 mg QDAY LEXIE Administration Lubiprostone 24 mcg 05/31/19 10:00 06/01/19 09:50 Amitiza (Nf) PO 24 mcg BID LEXIE Administration Melatonin 5 mg 05/31/19 22:00 06/01/19 01:05 Melatonin PO Not Given HS LEXIE Methylprednisolone 4 mg 05/31/19 10:00 06/01/19 09:51 Medrol PO 4 mg QDAY LEXIE Administration Quetiapine Fumarate 200 mg 05/31/19 22:00 06/01/19 01:05 Seroquel PO Not Given HS LEXIE Valacyclovir HCl 500 mg 05/31/19 10:00 06/01/19 09:52 Valtrex PO 500 mg QDAY LEXIE Administration
[2019-06-01] MEDS: clonazePAM 0.5 MG TAB PO SCH ×2 (12:56→21:50)
--- NOTE | 2019-06-01 18:43 | Consultation ---
History of Present Illness - Reason for Consult Consult date: 06/01/19 Reason for consult: Mental Health Evaluation Requesting physician: EVIN BALDERAS - Chief Complaint Chief complaint: "I didn't overdose on purpose" - History of Present Psychiatric Illness 64 y.o. AA female who presented to the ER for possible overdose. Today the patient was calm during the assessment. She stated that she was not attempting to overdose when she ingested several of her medication. She stated, "I wasn't paying attention to what I was doing." She denies a previous suicide attempt when asked. She would not confirm or deny a mental health dx when asked. She denies being depressed, SI/HI's, and AVH's. She denies a poor appetite and erratic sleep. She denies recreational drug use and alcohol consumption (etoh). The patient stated that she take Klonopin 5 times a week for anxiety. Medications and Allergies Allergies Allergy/AdvReac Type Severity Reaction Status Date / Time No Known Allergies Allergy Verified 01/22/18 15:19 Home Medications Medication Instructions Recorded Confirmed Last Taken Type ALPRAZolam [Xanax TAB] 0.5 mg PO QDAY PRN 05/31/19 05/31/19 Unknown History AtorvaSTATin [Lipitor] 20 mg PO QHS 05/31/19 05/31/19 Unknown History Baclofen [Lioresal] 10 mg PO TID 05/31/19 05/31/19 Unknown History Butalb/Acetaminophen/Caffeine 50 mg PO DAILY 05/31/19 05/31/19 Unknown History [Mfsvfg-Cfiidwxy-Oiuj 50-325-40] Divalproex ER [Depakote ER] 500 mg PO QDAY 05/31/19 05/31/19 Unknown History Ergocalciferol [Vitamin D2] 1 cap PO QWEEK 05/31/19 05/31/19 Unknown History Losartan [Cozaar] 50 mg PO QDAY 05/31/19 05/31/19 Unknown History Lubiprostone [Amitiza] 24 mcg PO BID 05/31/19 05/31/19 Unknown History Melatonin [Melatonin 5MG TAB] 5 mg PO HS 05/31/19 05/31/19 Unknown History Naproxen 500 mg PO BID 05/31/19 05/31/19 Unknown History Oxycodone HCl [oxyCODONE] 10 mg PO BID 05/31/19 05/31/19 Unknown History Quetiapine Fumarate [SEROquel] 200 mg PO HS 05/31/19 05/31/19 Unknown History Valacyclovir HCl [Valtrex] 500 mg PO QDAY 05/31/19 05/31/19 Unknown History Zolpidem Tartrate [Edluar SUBL] 10 mg SL QHS PRN 05/31/19 05/31/19 Unknown History clonazePAM [Klonopin] 1 mg PO TID PRN 05/31/19 05/31/19 Unknown History diazePAM TAB [Valium] 5 mg PO QDAY PRN 05/31/19 05/31/19 Unknown History methylPREDNISolone [Medrol 4MG 4 mg PO DAILY 05/31/19 05/31/19 Unknown History DOSEPAK (21 tabs)] Active Meds: Active Medications Acetaminophen/Butalbital/Caffeine (Fioricet) 1 tab PO DAILY [facility] Last Admin: 06/01/19 09:49 Dose: 1 tab Documented by: Atorvastatin Calcium (Lipitor) 20 mg PO QHS [facility] Last Admin: 06/01/19 00:56 Dose: Not Given Documented by: Clonazepam (Klonopin) 0.5 mg PO BID [facility] Last Admin: 06/01/19 12:56 Dose: 0.5 mg Documented by: Divalproex Sodium (Depakote Er) 500 mg PO QDAY [facility] Last Admin: 06/01/19 09:51 Dose: 500 mg Documented by: Ergocalciferol (Vitamin D2) 50,000 unit PO [facility] Insulin Human Lispro (Humalog) 0 unit SUB-Q [facility]; Protocol Losartan Potassium (Cozaar) 50 mg PO QDAY [facility] Last Admin: 06/01/19 09:50 Dose: 50 mg Documented by: Lubiprostone (Amitiza (Nf)) 24 mcg PO BID [facility] Last Admin: 06/01/19 09:50 Dose: 24 mcg Documented by: Melatonin (Melatonin) 5 mg PO [facility] Last Admin: 06/01/19 01:05 Dose: Not Given Documented by: Methylprednisolone (Medrol) 4 mg PO QDAY [facility] Last Admin: 06/01/19 09:51 Dose: 4 mg Documented by: Quetiapine Fumarate (Seroquel) 200 mg PO [facility] Last Admin: 06/01/19 01:05 Dose: Not Given Documented by: Valacyclovir HCl (Valtrex) 500 mg PO QDAY [facility] Last Admin: 06/01/19 09:52 Dose: 500 mg Documented by: Past psychiatric history - Past Medical History Past Medical History: hypertension Past Surgical History: No surgical history - past Psychiatric treatment and history psychiatric treatment history: The patient would not confirm or deny a psy hx. Denies a psy hx. - Social History Social history: lives with family Mental Status Exam - Vital signs Last Vital Signs Temp 97.6 F 06/01/19 04:15 Pulse 86 06/01/19 12:00 Resp 18 06/01/19 16:00 BP 121/64 06/01/19 11:39 Pulse Ox 100 06/01/19 16:00 - Exam Narrative exam: MSE: Appearance: calm Behavior: regular eye contact Speech: regular rate and tone Mood: "okay: ffect: congruent to mood Thought Process: circumstantial Thought Content: denies SI/HI's and AVH's Motor Activity: ambulatory Cognition: A/O x 3 Insight: variable Judgment: variable Results Result Diagrams: 06/01/19 06:41 06/01/19 06:41 Abnormal lab results 06/01/19 06/01/19 06/01/19 Range/Units 06:41 06:41 17:51 RBC 3.45 L (3.65-5.03) M/mm3 RDW 15.8 H (13.2-15.2) % Carbon Dioxide 21 L (22-30) mmol/L Glucose 137 H (65-100) mg/dL POC Glucose 151 H (70-105) Albumin 3.8 L (3.9-5) g/dL All other labs normal. Assessment and Plan Assessment and plan: Impression: Intentional vs Unintentional Overdose. Unspecified Anxiety DO per the patient. Today the patient was calm during the assessment. Recommendation/Plan: Continue 1013 and gather collateral information. Modify Klonopin to 0.5 mg PO BID for anxiety. Staffed with Dr Jules Oliver.
[2019-06-01] MEDS: INSULIN LISPRO 100 UNIT/ML SUB-Q SCH (22:02)
[2019-06-02] MEDS: INSULIN LISPRO 100 UNIT/ML SUB-Q SCH ×2 (08:24→12:28)
[2019-06-02] MEDS: LUBIPROSTONE 24 MCG PO SCH (09:57)
[2019-06-02] MEDS: clonazePAM 0.5 MG TAB PO SCH (09:57)
[2019-06-02] MEDS: LOSARTAN 50 MG TAB PO SCH (09:57)
[2019-06-02] MEDS: BUTALB/ACETAMINOPHEN/CAFFEINE TAB PO SCH (10:00)
[2019-06-02] MEDS: DIVALPROEX ER 500 MG TAB PO SCH (10:01)
[2019-06-02] MEDS: valACYclovir 500 MG TAB PO SCH (10:02)
[2019-06-02] MEDS: methylPREDNISolone 4 MG TAB PO SCH (10:03)
[2019-06-02 10:10] VITALS: BP 149/67
--- NOTE | 2019-06-02 11:51 | Progress Note ---
Subjective - Reason for Consult Consult date: 06/02/19 Reason for consult: Psychiatry Follow-up - Chief Complaint Chief complaint: "I have to stay focus when I take my medication" 64 y.o. AA female who presented to the ER for possible overdose. Today the patient was calm and cooperative during the assessment. Per collateral information from the patient's daughter Maira Jackson at [phone], she stated that the patient didn't try to kill herself when she took several pills prior to her ER visit. She stated that her mother can forget things "sometimes." She denies any previous suicide attempts or self harm behavior by the patient in the past. She confirmed that Dr Valencia is the patient's PCP. The patient denies SI/HI's and AVH's. Mental Status Exam - Vital signs Last Vital Signs Temp 98.0 F 06/02/19 03:31 Pulse 91 H 06/02/19 09:57 Resp 16 06/02/19 03:31 BP 149/67 06/02/19 09:57 Pulse Ox 97 06/02/19 09:06 - Exam Narrative exam: MSE: Appearance: calm, cooperative Behavior: regular eye contact Speech: regular rate and tone Mood: "okay" affect: congruent to mood Thought Process: linear Thought Content: denies SI/HI's and AVH's Motor Activity: ambulatory Cognition: A/O x 3 Insight: fair Judgment: fair Assessment and Plan Impression: Unintentional Overdose. Unspecified Anxiety DO per the patient. Today the patient was calm and cooperative during the assessment. Ths patient is no threat to self. Recommendation/Plan: Rescind 1013. Discussed with the patient and her daughter Maira Jackson about purchasing a pill organizer (for the patient), they both verbalized understanding. Dispo: The patient can follow up with her PCP Dr Valencia or [facility] for outpatient psy services if indicated. Will staff with Dr Jules Oliver.
--- NOTE | 2019-06-02 14:34 | Discharge Summary ---
Providers - Providers Date of Admission: 05/31/19 04:17 Attending physician: EVIN BALDERAS MD 05/31/19 04:40 Consult to Mental Health [CONS] Routine Reason For Exam: suicidal Place consult to:: mental health Notified:: Mental health Phone number called:: [phone] Was contact made?: Yes If yes, spoke with:: [place] Time called:: 13:55 Primary care physician: [employer] Hospitalization Reason for admission: overdose Condition: Stable Hospital course: Patient is 64-year-old female with history of hypertension and diabetes apparen tly mental or behavioral medical conditions for which she appears to be on multiple psychiatric medications. Presents to the ED via EMS after the daughter found her confused and altered. Patient currently remains somnolent although saturating 96% on 2 L nasal cannula and in no evidence of acute respiratory distress. Information is obtained from the ED documentation and discussion with the daughter. Per the ED nurse and physician the patient was more awake when she presented. " Patient stated that she is having trouble with her daughter and asked why she decided to took pills. Patient stated that she took the pills at 4 PM approximately 9 hours ago." * In the ED the patient was noted to patient the obtunded but also question and she responded well to our daughter. Oxygen saturation is 100% on 2 L of oxygen. Labs reviewed and is unremarkable except for positive UDS for barbiturate and benzodiazepine. * She was started on Narcan drip by EMS and continued at this time. Initial abhijit taminophen level is negative. The ED physician spoke with poison control recommended admission to monitor. * Home medications reviewed EMS also reported that they could not find any empty bottles Percocet database included in the multiple medication the patient has has a Percocet with medications still and it does not appear that multiple meds of 60 tabs was taken out. * Patient was seen by psc and "Rescind 1013. Discussed with the patient and her daughter Maira Jackson about purchasing a pill organizer (for the patient), they both verbalized understanding." * The patient can follow up with her PCP Dr Valencia or [facility] for outpatient psy services if indicated. * Narcan drip was discontinued Acute metabolic encephalopathy likely secondary to combination of alcohol and opioid in addition to barbiturates Suicidal attempt Presumed underlying behavioral health disorder Positive UDS for opioid and barbiturates Morbid obesity Disposition: DC-01 TO HOME OR SELFCARE Time spent for discharge: 35 mins Core Measure Documentation - Palliative Care Palliative Care/ Comfort Measures: Not Applicable - Core Measures Any of the following diagnoses?: none Exam - Physical Exam Narrative exam: VITAL SIGNS: Reviewed. GENERAL: The patient appears normally developed, Vital signs as documented. HEAD: No signs of head trauma. EYES: Pupils are equal. Extraocular motions intact. EARS: Hearing grossly intact. MOUTH: Oropharynx is normal. NECK: No adenopathy, no JVD. CHEST: Chest with clear breath sounds bilaterally. No wheezes, rales, or rhonchi. CARDIAC: Regular rate and rhythm. S1 and S2, without murmurs, gallops, or rubs. VASCULAR: No Edema. Peripheral pulses normal and equal in all extremities. ABDOMEN: Soft, non tender and non distended. No rebound or guarding, and no masses palpated. Bowel Sounds normal. MUSCULOSKELETAL: Good range of motion of all major joints. Extremities without clubbing, cyanosis or edema. NEUROLOGIC EXAM: awake and oriented x3. No focal sensory or strength deficits. Speech normal. Follows commands. PSYCHIATRIC: Mood normal. SKIN: tattoo Detail exam as documented in skin assessment - Constitutional Vitals: Temp Pulse Resp BP Pulse Ox 98.0 F 91 H 16 149/67 97 06/02/19 03:31 06/02/19 09:57 06/02/19 03:31 06/02/19 09:57 06/02/19 09:06 Plan Activity: advance as tolerated, fall precautions Diet: low fat Special Instructions: record daily weights, record daily BP diary Follow up with: [facility] [Outside] - 7 Days [facility] [Outside] - 7 Days PRIMARY CARE, [Primary Care Provider] - 7 Days Forms: Accompanied Note
[2019-06-06] MEDS ORDERED: ERGOCALCIFEROL (VIT D2) 50,000 UNIT CAP PO SCH (10:00)
== END 2019-06-02 14:30 | disposition home or self-care (01) | DRG 917 ==
LOC: ED 00:57 → IMCU 04:17 → 2B-ACE 06-01 11:26
PROVIDERS: ADMIT Internal Medicine Geriatric Medicine; ATTEND Internal Medicine
DX: T40.2X1A Poisoning by other opioids, accidental (unintentional), initial encounter (principal); G92 Toxic encephalopathy; I10 Essential (primary) hypertension; F41.9 Anxiety disorder, unspecified; E11.9 Type 2 diabetes mellitus without complications; E66.01 Morbid (severe) obesity due to excess calories; F10.20 Alcohol dependence, uncomplicated; M19.90 Unspecified osteoarthritis, unspecified site; G43.909 Migraine, unspecified, not intractable, without status migrainosus; Z79.899 Other long term (current) drug therapy; Z68.35 Body mass index [BMI] 35.0-35.9, adult; Z86.718 Personal history of other venous thrombosis and embolism; Y92.89 Other specified places as the place of occurrence of the external cause
CPT/HCPCS: 36415; 70450; 80053; 80307; 80320; 81001; 82550; 82962; 83735; 85025; 85027; 93005; 93010; 94760; 96365; G0378; A9270-GY; G0480; J1815; J2310; J2405; J3411; J7030; J7040; J7509

== ENCOUNTER 2020-02-07 12:44 | Outpatient (CLI) | payer MEDICARE ==
--- NOTE | 2020-02-07 14:24 | Mammography Report ---
DIGITAL DIAGNOSTIC MAMMOGRAM WITH CAD, -- 02/07/2020 INDICATION: Intermittent nonfocal right breast pain. TECHNIQUE: Digital bilateral mammographic imaging was performed. This examination was interpreted with the benefit of Computer-aided Detection analysis. COMPARISON: 02/17/2019, 02/15/2018 FINDINGS: Breast Density: There are scattered areas of fibroglandular density. There is no evidence of dominant mass, suspicious calcifications or architectural distortion in eithe r breast. A biopsy clip is again seen in the 12-1:00 position of the middle depth of the left breast. IMPRESSION: No evidence of malignancy. Recommended Follow-Up: Routine yearly BI-RADS Category 1: Negative. A "normal" or negative report should not discourage follow up or biopsy of a clinically significant f inding. A written summary of these findings will be mailed to the patient. The patient will be entered into a mammography reporting system which will generate a reminder letter for the patient's next appointmen t at the appropriate interval. According to the [employer], yearly mammograms are recommended starting at age 40 and continuing as long as a woman is in good health. Breast MRI is recommended for women with an tono roximately 20-25% or greater lifetime risk of breast cancer, including women with a strong family his tory of breast or ovarian cancer and women who have been treated for Hodgkin's disease. Signer Name: Nikolas Izquierdo MD Signed: 02/07/2020 2:20 PM Workstation Name: [id number]
== END 2020-02-07 12:45 | disposition home or self-care (01) ==
LOC: MAMMO 12:44
PROVIDERS: ATTEND Internal Medicine
DX: N64.4 Mastodynia (principal)
CPT/HCPCS: 77066

== ENCOUNTER 2021-02-19 14:11 | Outpatient (CLI) | payer MEDICARE ==
--- NOTE | 2021-02-20 10:19 | Mammography Report ---
DIGITAL SCREENING MAMMOGRAM WITH CAD, 02/20/2021 CLINICAL INFORMATION / INDICATION: Routine screening mammography. SCREENING MAMMOGRAM TECHNIQUE: Digital bilateral 2D mammography was obtained in the craniocaudal and mediolateral obliqu e projections. This examination was interpreted with the benefit of Computer-Aided Detection analysis . COMPARISON: 02/17/2019 FINDINGS: Breast Density: There are scattered areas of fibroglandular density. No dominant mass, suspicious calcifications, or architectural distortion in either breast. Old biopsy change on the left. IMPRESSION: No mammographic evidence of malignancy. Follow up recommendation: Routine yearly BI-RADS Category 2: Benign. A "normal" or negative report should not discourage follow up or biopsy of a clinically significant f inding. A written summary of these findings will be mailed to the patient. The patient will be entered into a mammography reporting system which will generate a reminder letter for the patient's next appointmen t at the appropriate interval. The [employer] recommends yearly mammograms starting at age 40 and continuing as l pierre as a woman is in good health. Breast MRI is recommended for women with an approximate 20-25% or greater lifetime risk of breast cancer, including women with a strong family history of breast or ova margot cancer or who have been treated for Hodgkin's disease. Signer Name: Myron Sutton MD Signed: 02/20/2021 10:15 AM Workstation Name: [id number]
== END 2021-02-19 14:12 | disposition home or self-care (01) ==
LOC: MAMMO 14:11
PROVIDERS: ATTEND Internal Medicine
DX: Z12.31 Encounter for screening mammogram for malignant neoplasm of breast (principal); N64.89 Other specified disorders of breast
CPT/HCPCS: 77067

== ENCOUNTER 2022-03-06 13:26 | Outpatient (CLI) | payer MEDICARE ==
--- NOTE | 2022-03-10 10:51 | Mammography Report ---
DIGITAL SCREENING MAMMOGRAM WITH CAD, 03/06/2022 CLINICAL INFORMATION / INDICATION: Routine screening mammography. SCREENING MAMMOGRAM Z12.31 TECHNIQUE: Digital bilateral 2D mammography was obtained in the craniocaudal and mediolateral obliqu e projections. This examination was interpreted with the benefit of Computer-Aided Detection analysis . COMPARISON: 02/19/2021 FINDINGS: Breast Density: There are scattered areas of fibroglandular density. No dominant mass, suspicious calcifications, or architectural distortion in either breast. Benign-appearing calcification is unchanged. Biopsy clip left breast. IMPRESSION: No mammographic evidence of malignancy. Follow up recommendation: Routine yearly screening mammogram. BI-RADS Category 2: BENIGN. A "normal" or negative report should not discourage follow up or biopsy of a clinically significant f inding. A written summary of these findings will be mailed to the patient. The patient will be entered into a mammography reporting system which will generate a reminder letter for the patient's next appointmen t at the appropriate interval. The [employer] recommends yearly mammograms starting at age 40 and continuing as l pierre as a woman is in good health. Breast MRI is recommended for women with an approximate 20-25% or greater lifetime risk of breast cancer, including women with a strong family history of breast or ova margot cancer or who have been treated for Hodgkin's disease. Signer Name: Drew Slater MD Signed: 03/10/2022 10:46 AM Workstation Name: [id number]
== END 2022-03-06 13:27 | disposition home or self-care (01) ==
LOC: MAMMO 13:26
PROVIDERS: ATTEND Internal Medicine
DX: Z12.31 Encounter for screening mammogram for malignant neoplasm of breast (principal)
CPT/HCPCS: 77067